=== PATIENT | male | born 1990 | race Two or more races ===

== ENCOUNTER 2020-04-26 08:55 | Emergency (ER) | payer SELFPAY ==
[~2020-04-26] VITALS: Ht 180.3 cm; Wt 72.0 kg
--- NOTE | 2020-04-26 09:34 | PHYS DOC ---
Past Medical History Past Medical History: No Pertinent History Past Surgical History: No Surgical History Smoking Status: Current Every Day Smoker Alcohol Use: None General Adult EDM: Chief Complaint: ABDOMINAL PAIN HPI: HPI: Patient is a 30-year-old male with no reported PMH who presents with chief complaint of diffuse abdominal discomfort associated with stool changes over the past 2 months. He states the symptoms are intermittent in nature. States he has a bloated-like feeling. He states he has had intermittent constipation and loose stool. He states he was seen at an outside emergency department where CAT scan imaging and labs were obtained and were unremarkable. States he was discharged home with medicine. He states he has not been able to fill that medicine. He is unsure the name of the medication. Notes he has had some loose stool recently. States this morning it appeared as though a very small amount of bright red blood was in his stool. Denies any unexplained weight loss. Denies any family history of colon cancer. Denies urinary symptoms. Penile discharge. Denies any fevers. Has not followed up with a primary care physician. States he has been able to eat and drink well without difficulty. States his greatest concern today is being prescribed medication help with the symptoms. Denies previous abdominal surgeries. No other complaints. Review of Systems: Review of Systems: Constitutional: Denies fever or chills. [] Eyes: Denies change in visual acuity. [] HENT: Denies nasal congestion or sore throat. [] Respiratory: Denies cough or shortness of breath. [] Cardiovascular: Denies chest pain or edema. [] GI: Positive for abdominal pain, constipation, loose stool : Denies dysuria. [] Musculoskeletal: Denies back pain or joint pain. [] Integument: Denies rash. [] Neurologic: Denies headache, focal weakness or sensory changes. [] Endocrine: Denies polyuria or polydipsia. [] Lymphatic: Denies swollen glands. [] Psychiatric: Denies depression or anxiety. [] Heart Score: Risk Factors: Risk Factors: DM, Current or recent (<one month) smoker, HTN, HLP, family history of CAD, obesity. Risk Scores: Score 0 - 3: 2.5% MACE over next 6 weeks - Discharge Home Score 4 - 6: 20.3% MACE over next 6 weeks - Admit for Clinical Observation Score 7 - 10: 72.7% MACE over next 6 weeks - Early Invasive Strategies Allergies: Allergies: Allergies Coded Allergies Type Severity Reaction Last Updated Verified amoxicillin Allergy Mild rash 04/26/20 Yes Physical Exam: PE: Constitutional: Well developed, well nourished, no acute distress, non-toxic appearance. [] HENT: Normocephalic, atraumatic, bilateral external ears normal, oropharynx moist, no oral exudates, nose normal. [] Eyes: PERRLA, EOMI, conjunctiva normal, no discharge. [] Neck: Normal range of motion, no tenderness, supple, no stridor. [] Cardiovascular:Heart rate regular rhythm, no murmur [] Lungs & Thorax: Bilateral breath sounds clear to auscultation [] Abdomen: Soft, nontender, nonacute abdomen. No involuntary guarding or rigidity noted. No acute peritonitis. : Circumcised. No testicular tenderness to palpation. No inguinal masses noted. No overlying skin changes. Skin: Warm, dry, no erythema, no rash. [] Back: No tenderness, no CVA tenderness. [] Extremities: No tenderness, no cyanosis, no clubbing, ROM intact, no edema. [] Neurologic: Alert and oriented X 3, normal motor function, normal sensory function, no focal deficits noted. [] Psychologic: Affect normal, judgement normal, mood normal. [] Current Patient Data: Labs: Laboratory Tests Test 04/26/20 09:19 White Blood Count 6.2 x10^3/uL Red Blood Count 5.11 x10^6/uL Hemoglobin 15.0 g/dL Hematocrit 44.2 % Mean Corpuscular Volume 87 fL Mean Corpuscular Hemoglobin 29 pg Mean Corpuscular Hemoglobin Concent 34 g/dL Red Cell Distribution Width 13.2 % Platelet Count 264 x10^3/uL Neutrophils (%) (Auto) 66 % Lymphocytes (%) (Auto) 23 % Monocytes (%) (Auto) 9 % Eosinophils (%) (Auto) 2 % Basophils (%) (Auto) 1 % Neutrophils # (Auto) 4.1 x10^3/uL Lymphocytes # (Auto) 1.4 x10^3/uL Monocytes # (Auto) 0.5 x10^3/uL Eosinophils # (Auto) 0.1 x10^3/uL Basophils # (Auto) 0.1 x10^3/uL Sodium Level 141 mmol/L Potassium Level 3.5 mmol/L Chloride Level 106 mmol/L Carbon Dioxide Level 30 mmol/L Anion Gap 5 Blood Urea Nitrogen 9 mg/dL Creatinine 0.9 mg/dL Estimated GFR (Cockcroft-Gault) 97.8 Glucose Level 105 mg/dL Calcium Level 8.8 mg/dL Current Medications Medications (Trade) Dose Ordered Sig/Beatriz Route PRN Reason Start Time Stop Time Status Last Admin Dose Admin Dicyclomine HCl (Bentyl) 20 mg 1X ONCE PO 04/26/20 09:45 04/26/20 09:46 DC Ondansetron HCl (Zofran Odt) 4 mg 1X ONCE PO 04/26/20 09:45 04/26/20 09:46 DC Vital Signs: Vital Signs Date Time Temp Pulse Resp B/P (MAP) Pulse Ox O2 Delivery O2 Flow Rate FiO2 04/26/20 09:04 97.7 72 18 131/74 (93) 99 Room Air 97.7 EKG: EKG: [] Radiology/Procedures: Radiology/Procedures: [] Course & Med Decision Making: Course & Med Decision Making Pertinent Labs and Imaging studies reviewed. (See chart for details) [] Patient is a well-appearing 30-year-old male who presents with chief complaint of intermittent abdominal bloating discomfort associated with stool changes over the past 2 months. Initial vital signs normal. Examination grossly unremarkable. Abdomen without reproducible tenderness. Laboratory analysis was obtained and was grossly unremarkable. No leukocytosis. Remainder of labs unremarkable. I do feel the patient is appropriate for discharge home at this time. Advanced CT imaging will be deferred as the patient's abdomen is benign on exam, normal vital signs, and chronicity of symptoms. He will be discharged home with Bentyl and Colace to help with symptoms. He was instructed to follow-up with his primary care physician was given referral resources. Return precautions discussed and understood. Stable for discharge home. Lianna Disclaimer: Lianna Disclaimer: This electronic medical record was generated, in whole or in part, using a voice recognition dictation system. Departure Departure Impression: Primary Impression: Abdominal pain Qualified Codes: R10.84 - Generalized abdominal pain Additional Impression: Loose stools Disposition: 01 HOME, SELF-CARE Condition: STABLE Referrals: SHABNAM LYONS MD Patient Instructions: Irritable Bowel Syndrome Additional Instructions: [facility] [address] [place] [address] [facility] [address] [place] [address] [facility] [address] [facility] [place] [address] [facility] [address] [place] [address] [facility] [address] [place] [address] [facility] [address] [place] [address] [facility] [address] [place] [address] [facility] [address] [place] [address] [facility] [address] [place] [address] [facility] [address] [place] [address] Scripts Docusate Sodium (COLACE) 100 Mg Capsule 1 CAP PO BID for 7 Days, #14 CAP 0 Refills Prov: JAVIER BARTHOLOMEW DO 04/26/20 Dicyclomine Hcl (DICYCLOMINE HCL) 20 Mg Tablet 1 TAB PO QID for 7 Days, #28 TAB 1 Refill Prov: JAVIER BARTHOLOMEW DO 04/26/20 Justicifation of Admission Dx: Justifications for Admission: Justification of Admission Dx: N/A JAVIER BARTHOLOMEW DO Apr 26, 2020 09:34
[2020-04-26] MEDS ORDERED: DICYCLOMINE HCL 10 MG CAPSULE PO ONE (09:45)
[2020-04-26] MEDS ORDERED: ONDANSETRON ODT 4 MG TAB.RAPDIS. PO ONE (09:45)
[2020-04-26 09:47] LABS: BASO # 0.1 x10^3/uL (0.0-0.2); BASO % 1 % (0-3); EOS # 0.1 x10^3/uL (0.0-0.7); EOS % 2 % (0-3); HEMATOCRIT 44.2 % (39.0-53.0); LYMPH # 1.4 x10^3/uL (1.0-4.8); LYMPH % 23 % (24-48); MEAN CORPUSCULAR HEMOGLOBIN 29 pg (25-35); MEAN CORPUSCULAR HGB CONC 34 g/dL (31-37); MEAN CORPUSCULAR VOLUME 87 fL (79-100); MONO # 0.5 x10^3/uL (0.0-1.1); MONO % 9 % (0-9); NEUT # 4.1 x10^3/uL (1.8-7.7); NEUT % 66 % (31-73); PLATELET COUNT 264 x10^3/uL (140-400); RED BLOOD COUNT 5.11 x10^6/uL (4.30-5.70); RED CELL DISTRIBUTION WIDTH 13.2 % (11.5-14.5); WHITE BLOOD COUNT 6.2 x10^3/uL (4.0-11.0)
[2020-04-26 09:54] LABS: CALCIUM 8.8 mg/dL (8.5-10.1); CREATININE 0.9 mg/dL (0.7-1.3); GFR 97.8; POTASSIUM 3.5 mmol/L (3.5-5.1)
[2020-04-26] MEDS ORDERED: DICY20TA3 PO (09:58)
[2020-04-26] MEDS ORDERED: DOCU-109 PO (09:58)
[2020-04-26 10:09] VITALS: BP 121/70
== END 2020-04-26 10:17 | disposition home or self-care (01) ==
LOC: ER 08:55
DX: R10.84 Generalized abdominal pain (principal); R19.7 Diarrhea, unspecified; F17.200 Nicotine dependence, unspecified, uncomplicated; Z88.1 Allergy status to other antibiotic agents
CPT/HCPCS: 36415; 80048; 85025; 99283